=== PATIENT | male | born 1980 | race African-American/Black ===

== ENCOUNTER 2017-06-01 20:33 | Inpatient (IN) | payer SELFPAY ==
[2017-06-01] MEDS ORDERED: Ondansetron ODT 4 MG TAB PO PRN (23:17)
[2017-06-01] MEDS ORDERED: Bisacodyl 5 MG TAB PO PRN (23:17)
[2017-06-01] MEDS ORDERED: Boostrix 0.5 ML VIAL IM ONE (23:23)
--- NOTE | 2017-06-01 23:52 | HP ---
DATE OF ADMISSION: 06/01/2017 ATTENDING: Neida Toney D.O. RESIDENT: Miriam Daivs MD HISTORY OF PRESENT ILLNESS: Dr. Davis's H\T\P reviewed and case discussed. Pertinent portions of the history and physical repeated by myself. I agree with his assessment and plan with following ad dendum. Mr. Blanco is a 37-year-old -[place] male with an unremarkable past medical history who p resents to the ER with an infection in the dorsum of his left hand. 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 His left hand did show marked soft tissue swelling with minima l erythema and a 2 cm laceration on the dorsum of the left hand with some serous purulence, some tis susan is visible through the laceration is concerning for some necrosis. Hand x-ray does not show any bony involvement, pain is not significantly worsened with movement of his fingers. Orthopedic Surg terrance was called from the ER and will see him in the morning. Tonight, we will start vancomycin and Z osyn. Wound culture was performed and the patient was given pain medication for his comfort.
[2017-06-02] MEDS ORDERED: Adacel (T-DAP) 0.5 ML VIAL IM ONE (00:30)
[2017-06-02] MEDS: Sodium Chloride 0.9% 1,000 ML IV SCH ×4 (00:38→22:52)
[2017-06-02] MEDS: Piperacillin/Tazobactam 3.375 GM in Sodium Chloride 0.9% 100 ML IVPB SCH ×5 (00:40→23:48)
[2017-06-02] MEDS: Vancomycin HCl 1.5 GM in Sodium Chloride 0.9% 250 ML 300 ML IVPB SCH ×3 (02:03→15:42)
[2017-06-02 02:28] VITALS: BMI 26.3
--- NOTE | 2017-06-02 04:19 | HP-2 ---
DATE OF ADMISSION: 06/01/2017 COSIGNER: Neida Toney D.O. CODE STATUS: FULL CODE. PRIMARY CARE PHYSICIAN: Marbella palmer. Patient is from [place], unknown PCP. ATTENDING: Neida Toney D.O. PGY-I: Miriam Davis MD HISTORIAN: Patient. CHIEF COMPLAINT: Left-hand abscess. HISTORY OF PRESENT ILLNESS: A 37-year-old male with no past medical history, who presents with 2-day history of left-hand swelling, pain, and exudate/pus draining from a laceration on the dorsal aspect of the patient's left hand. 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 The patient denies fevers or chills and denies nausea, vomiting, headaches. In the ER, the patient was a transfer from [place], where he received 1 gram of Rocephin and morphine 4 mg. PAST MEDICAL HISTORY: Denies. PAST SURGICAL HISTORY: Denies. ALLERGIES: No known drug allergies. MEDICATIONS: Denies. FAMILY HISTORY: Denies. SOCIAL HISTORY: Tobacco use, half a pack per day, 10 pack years. Alcohol use, 2-3 beers per day. Drugs, denies drug use. REVIEW OF SYSTEMS: General: Negative for fevers, chills, weight, appetite, sleep changes, night sweats, fatigue. Eyes: Denies vision changes or eye pain. Respiratory: Denies cough, congestion, shortness of breath. Cardiovascular: Denies chest pain, palpitations, and edema. Gastrointestinal: Denies nausea, vomiting, diarrhea, constipation, abdominal pain, and GI bleeding. Genitourinary: Denies incontinence, dysuria. Skin: Denies rashes or lesions. Musculoskeletal: Endorses pain, tenderness, swelling, exudate, and laceration. Neuro: Denies weakness, numbness, syncope, seizure. Psychiatric: Denies anxiety or depression. PHYSICAL EXAMINATION: VITAL SIGNS: Blood pressure 120/78, pulse 82, respiratory rate 16, T-max 98.6, pulse ox 95% on room air, current weight 92 kilograms. GENERAL: Alert and oriented x3, in no acute distress. Well-developed, well- nourished, appropriately interactive. EYES: PERRLA, EOMI with erythema with conjunctival/scleral erythema. Endorses nasal mucosa within normal limits. NECK: Supple, no lymphadenopathy or thyromegaly. CARDIOVASCULAR: Regular rate and rhythm. No murmur, S3, gallops, 2+ pedal pulses. RESPIRATORY: Normal effort, no retractions. Clear to auscultation bilaterally. SKIN: Warm and dry. Left dorsal hand laceration approximately 2 inches with exudate, erythema, swelling localized around the laceration and tenderness to palpation. ABDOMEN: Soft, nontender to palpation. Positive bowel sounds. No masses or distention. EXTREMITIES: No clubbing, cyanosis, or edema, other than the left hand on the dorsal aspect with localized swelling and erythema. MUSCULOSKELETAL: Structure within normal limits other than the left-hand wound. NEUROLOGIC: No focal deficits. GCS 15. PSYCHIATRIC: Appropriate. LABORATORY DATA: CBC: White blood cell count 7.7, hemoglobin 14.1, hematocrit 40.2, platelets 289. Chemistry: Sodium 140, potassium 3.5, chloride 106, bicarb 22, BUN 7, creatinine 0.99, glucose 85. Calcium 8.6, total protein 7, albumin 3.9, total bilirubin 0.6, AST 35, ALT 21, alkaline phosphatase 53. PT 12.8, INR 1, PTT 24.3. ASSESSMENT AND PLAN: A 37-year-old male with no past medical history, admitted for left-hand abscess. 1. Left-hand abscess. Dr. Olivia has been consulted. Vancomycin and Zosyn were started and vancomycin trough placed. Wound culture was ordered. Patient was made n.p.o. at midnight. I and D is scheduled for in the morning. Morphine was provided for pain control. OT, PT, case management, and wound care have been consulted. 2. Tobacco use and abuse. Offered patch and counseled the patient on cessation. DISPOSITION AND LENGTH OF STAY: 3 days. Symptomatic medication will be provided. History and physical exam as well as management discussed with Dr. Neida Toney. DAGMAR
[2017-06-02 05:53] LABS: #Basophils 0.1 thou/uL (0.0-0.2); #Eosinphils 0.1 thou/uL (0.0-0.7); #Lymphocytes 2.4 thou/uL (1.20-3.40); #Monocytes 0.7 thou/uL (0.11-0.59); #Neutrophils 2.8 thou/uL (1.40-6.50); %Basophils 0.9 % (0.0-1.0); %Eosinophils 1.1 % (0.0-10.0); %Lymphocytes 40.1 % (21.0-51.0); %Monocytes 12.2 % (0.0-10.0); Hematocrit 41.8 % (42.0-52.0); Mean Platelet Volume 7.5 fL (7.4-10.4); Red Blood Cell (RBC) Count 4.27 mill/uL (4.70-6.10)
[2017-06-02 06:12] LABS: Anion Gap 13 mmol/L (10-20); BUN (Urea Nitrogen) 7 mg/dL (8.9-20.6); Calc. Creatinine Clearance 123 mL/min (70-130); Calcium 8.9 mg/dL (7.8-10.44); Carbon Dioxide 24 mmol/L (22-29); Chloride 108 mmol/L (98-107); Estimated GFR-MDRD Greater than 90; Magnesium 2.2 mg/dL (1.6-2.6); Phosphorus 3.6 mg/dL (2.3-4.7)
--- NOTE | 2017-06-02 06:30 | PDOC.FM ---
- Subjective Subjective: Patient doing well this AM. He is frustrated with IV this morning, as he wants it out to shower. Otherwise doing well. Moderate amount of pain in hand, but fairly well controlled with current pain medication regimen. Hand sx to see patient this AM. No significant overnight events. Will follow recommendations of hand surgeon. - Objective MAR Reviewed: Yes Vital Signs & Weight: Vital Signs (12 hours) Temp Pulse Resp BP Pulse Ox 06/02/17 04:00 98.1 F 75 16 127/78 94 L 06/02/17 02:55 95 Result Diagrams: 06/02/17 05:34 06/02/17 05:34 <Cori Mcmahan - Last Filed: 06/02/17 08:22> - Objective Vital Signs & Weight: Vital Signs (12 hours) Temp Pulse Resp BP Pulse Ox 06/02/17 11:35 98.1 F 65 16 128/73 98 06/02/17 08:13 98.4 F 62 14 134/83 97 06/02/17 04:00 98.1 F 75 16 127/78 94 L 06/02/17 02:55 95 Result Diagrams: 06/02/17 05:34 06/02/17 05:34 <Jhonny Hodge - Last Filed: 06/02/17 12:00> Phys Exam - Physical Examination Constitutional: NAD HEENT: moist MMs, sclera anicteric Neck: supple, full ROM Respiratory: no wheezing, no rales, no rhonchi, clear to auscultation bilateral Cardiovascular: RRR, no significant murmur, no rub Gastrointestinal: soft, non-tender, no distention Musculoskeletal: no edema Neurological: normal sensation, moves all 4 limbs Psychiatric: A&O x 3 Deviation from normal: Patient in bad mood this AM Skin: cap refill <2 seconds Deviation from normal: Left dorsal hand abscess with 2 cm laceration. Purulent discharge. -: Open wound. Pt. able to move fingers. No loss of sensation. 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 Mcmahan. I agree with the History, Examination, Assessment and Plan documented above with any addition or exceptions noted below. Patient admitted for IV antibiotic therapy and possible further interventions by orthopedic surgery. Await recommendations from Hand surgery this morning. Patient currently on Zosyn and Vanc, will require close monitoring of Vanc to ensure does not approach toxic levels. WBC normal and afebrile so no current evidence of systemic infection. Culture pending. Patient also positive on UDS for cocaine, will require counselling during hospitalization. Other vitals stable at this time. <Jhonny Hodge - Last Filed: 06/02/17 12:00>
[2017-06-02 08:28] LABS: Amphetamine Not Detected (NotDetected); Methadone Not Detected (NotDetected); Methamphetamine Not Detected (NotDetected)
[2017-06-02] MEDS ORDERED: Sodium Chloride 0.9% 50 ML ONE (16:57)
[2017-06-02] MEDS ORDERED: Fentanyl 100 MCG/2 ML VIAL ONE ×2 (16:58→18:42)
[2017-06-02] MEDS ORDERED: Midazolam HCl 2 mg/2 ml Vial ONE (16:58)
[2017-06-02] MEDS ORDERED: Propofol 200 MG/20 ML VIAL ONE (17:35)
[2017-06-02] MEDS ORDERED: Dexamethasone 20 MG/5 ML VIAL ONE (17:35)
[2017-06-02] MEDS ORDERED: Lidocaine 2% PF 10 ML AMP (For Epidural Use) ONE (17:35)
[2017-06-02] MEDS ORDERED: Ondansetron HCl/PF 4 MG/2 ML Vial ONE (17:35)
[2017-06-02] MEDS ORDERED: Diprivan 20 ML ONE (17:42)
[2017-06-02] MEDS ORDERED: Ondansetron HCl/PF 4 MG/2 ML Vial IVP PRN (18:16)
[2017-06-02] MEDS ORDERED: HYDROmorphone 2 MG/ML VIAL SLOW IVP PRN (18:16)
[2017-06-02] MEDS ORDERED: Promethazine HCl 25 MG/ML VIAL IM PRN ×2 (18:16→19:41)
[2017-06-02] MEDS ORDERED: Promethazine HCl 25 MG/ML VIAL SLOW IVP PRN (18:16)
[2017-06-02] MEDS ORDERED: Ketorolac Tromethamine 30 MG/ML VIAL ONE (18:33)
[2017-06-02] MEDS ORDERED: Meperidine HCl/PF 25 MG/ML VIAL SLOW IVP PRN (19:41)
[2017-06-02] MEDS ORDERED: Meperidine HCl/PF 25 MG/ML VIAL IM PRN (19:42)
[2017-06-02] MEDS ORDERED: Vancomycin HCl 1 GM in Premix Bag 1 BAG IVPB SCH (20:00)
[2017-06-02] MEDS: Ketorolac Tromethamine 30 MG/ML VIAL IVP SCH (21:49)
[2017-06-03] MEDS: Vancomycin HCl 1 GM in Premix Bag 1 BAG IVPB SCH ×2 (03:38→13:59)
[2017-06-03] MEDS: Ketorolac Tromethamine 30 MG/ML VIAL IVP SCH ×3 (05:29→21:39)
[2017-06-03] MEDS: Piperacillin/Tazobactam 3.375 GM in Sodium Chloride 0.9% 100 ML IVPB SCH ×3 (05:29→17:19)
--- NOTE | 2017-06-03 05:48 | PDOC.FM ---
- Subjective Subjective: No significant overnight events. Patient taken to OR yesterday afternoon by Dr. Olivia. Gross abscess of left intraarticular MCPT noted. Infectious disease consulted. Patient doing well this AM. VSS. Afebrile. Patient reported that he wanted to leave this afternoon, because he has to pick his child up from school. It was advised that he call a friend or family member to assist with taking care of child while he is in hospital. - Objective MAR Reviewed: Yes Vital Signs & Weight: Vital Signs (12 hours) Temp Pulse Resp BP Pulse Ox 06/02/17 21:12 98 F 83 18 112/76 98 06/02/17 20:35 97.7 F 54 L 18 98 06/02/17 19:30 97.7 F 54 L 18 157/105 H 97 Weight Admit Weight 92.986 kg Weight 92.986 kg Result Diagrams: 06/03/17 05:26 06/03/17 05:26 <Cori Mcmahan - Last Filed: 06/03/17 08:12> - Objective Vital Signs & Weight: Vital Signs (12 hours) Temp Pulse Resp BP Pulse Ox 06/03/17 07:00 98 F 56 L 14 111/71 97 Weight Admit Weight 92.986 kg Weight 92.986 kg Result Diagrams: 06/03/17 05:26 06/03/17 05:26 <Jhonny Hodge - Last Filed: 06/03/17 11:24> Phys Exam - Physical Examination Constitutional: NAD HEENT: moist MMs, sclera anicteric Conjunctival erythema Neck: supple, full ROM Respiratory: no wheezing, no rales, no rhonchi, clear to auscultation bilateral Cardiovascular: RRR, no significant murmur, no rub Gastrointestinal: soft, non-tender, no distention, positive bowel sounds Musculoskeletal: no edema, pulses present Neurological: moves all 4 limbs Psychiatric: A&O x 3 Skin: cap refill <2 seconds Deviation from normal: Left hand bandaged. Bandage clean, dry and intact. -: Pinky and thumb nails excessively long compared to rest of nails. 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 Olivia: IV vancomycin and ID consults for intraarticular MCPT abscess older than one week -Dr. Quintero (ID) consulted per Dr. 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 Mcmahan. I agree with the History, Examination, Assessment and Plan documented above with any addition or exceptions noted below. Patient with successful drainage by Dr. Olivia yesterday. Patient reports no current pain. Cultures pending, though growing G+ cocci in pairs. Continue current abx regimen and await further recs from ID. No evidence of systemic infection at this time. Patient is likely to need prolonged wound care and a longer course of abx than what he has currently received, but patient appears determined to leave hospital today. Advised him that this is not in his best interest and would be better to wait until the specialists have cleared him. He understands but reports he will be leaving hospital today. Unless cleared this afternoon by ID and Ortho, patient will have to sign out AMA if he chooses to leave the hospital. <Jhonny Hodge - Last Filed: 06/03/17 11:24>
[2017-06-03 06:15] LABS: #Basophils 0.1 thou/uL (0.0-0.2); #Lymphocytes 0.9 thou/uL (1.20-3.40); #Monocytes 0.5 thou/uL (0.11-0.59); #Neutrophils 9.2 thou/uL (1.40-6.50); %Basophils 0.6 % (0.0-1.0); %Eosinophils 0.3 % (0.0-10.0); %Lymphocytes 8.1 % (21.0-51.0); Hematocrit 41.4 % (42.0-52.0); Mean Platelet Volume 8.3 fL (7.4-10.4); Red Blood Cell (RBC) Count 4.23 mill/uL (4.70-6.10); White Blood Cell (WBC) Count 10.7 thou/uL (4.8-10.8)
[2017-06-03 06:35] LABS: Anion Gap 14 mmol/L (10-20); BUN (Urea Nitrogen) 11 mg/dL (8.9-20.6); Calc. Creatinine Clearance 119 mL/min (70-130); Calcium 8.5 mg/dL (7.8-10.44); Carbon Dioxide 20 mmol/L (22-29); Chloride 106 mmol/L (98-107); Estimated GFR-MDRD 89
[2017-06-03] MEDS: Sodium Chloride 0.9% 1,000 ML IV SCH ×3 (08:43→22:39)
--- NOTE | 2017-06-03 23:53 | CON ---
DATE OF CONSULTATION: 06/03/2017 REASON FOR CONSULTATION: Left hand infection. 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 The patient was admitted and had a surgical debridement by Dr. Ayana rodriguez. I have not yet had a chance of reviewing the operative report. Cultures have been taken and th e results are discussed below. Otherwise, he denies headaches, visual symptoms, sore throat, odynop hagia, dysphagia. No cough or sputum production. No chest pain. No abdominal pain. No diarrhea. No genitourinary symptoms. No neurological problems. PAST MEDICAL HISTORY: Negative. PAST SURGICAL HISTORY: Negative. ALLERGIES: None. MEDICATIONS: Currently receiving Zosyn, vancomycin SOCIAL HISTORY: He has five children. He smokes daily. Drinks occasionally. Lives with his girlf jaime. PHYSICAL EXAMINATION: VITAL SIGNS: Have been normal, temperature normal. Slight elevation in systolic blood pressure. SKIN: Examination shows the elliptical laceration over the third left MCP skin site. Current findi ngs are not updated because of a bulky dressing which was not removed. No lymphadenopathy. HEENT: Ocular movements are conjugate. Sclerae white. Pupils are equal. Oral cavity moist. The patient has quite a bit of work in his teeth. NECK: Supple, no jugular vein distention. LUNGS: With symmetric clear breath sounds. HEART: S1, S2, regular rate. No S3 or S4. ABDOMEN: Soft, nondistended, nontender. No ascites. No bladder distention. EXTREMITIES: No joint inflammatory activity outside the area of involvement. NEUROLOGIC EXAMINATION: Nonfocal. LABORATORY DATA: White cell count 6 and 10.7, hemoglobin 14, platelets 291,000, 86% neutrophils, cr eatinine 1.09 and 1.13, sodium 136. Toxicology with opiates and cocaine metabolites. Microbiology with Staph aureus, pending susceptibilities and a gram-negative aliya yet to be fully identified, susc eptibility tested. The Staph aureus quantitation was many. Quantitation for the gram negative aliya was rare. Anaerobic cultures are pending. X-ray did not show any osteolysis. ASSESSMENT: Laceration, left hand third MCP skin site with cellulitis and likely deeper involvement , possible tenosynovitis. DISCUSSION: Septic arthritis/osteomyelitis. We will review operative report and wait on susceptibi lity profile of the organism to define IV versus oral treatment and which regimen to use. Check HIV serology, RPR and hepatitis C.
[2017-06-04] MEDS: Piperacillin/Tazobactam 3.375 GM in Sodium Chloride 0.9% 100 ML IVPB SCH ×2 (00:41→06:27)
[2017-06-04] MEDS: Vancomycin HCl 1 GM in Premix Bag 1 BAG IVPB SCH (03:52)
[2017-06-04 05:04] LABS: #Basophils 0.1 thou/uL (0.0-0.2); #Eosinphils 0.1 thou/uL (0.0-0.7); #Lymphocytes 2.9 thou/uL (1.20-3.40); #Monocytes 0.6 thou/uL (0.11-0.59); #Neutrophils 5.1 thou/uL (1.40-6.50); %Basophils 0.7 % (0.0-1.0); %Eosinophils 0.9 % (0.0-10.0); %Lymphocytes 32.8 % (21.0-51.0); Hematocrit 36.9 % (42.0-52.0); Red Blood Cell (RBC) Count 3.74 mill/uL (4.70-6.10); White Blood Cell (WBC) Count 8.7 thou/uL (4.8-10.8)
[2017-06-04 05:29] LABS: Anion Gap 11 mmol/L (10-20); BUN (Urea Nitrogen) 8 mg/dL (8.9-20.6); Calc. Creatinine Clearance 121 mL/min (70-130); Calcium 8.2 mg/dL (7.8-10.44); Carbon Dioxide 22 mmol/L (22-29); Chloride 109 mmol/L (98-107); Estimated GFR-MDRD Greater than 90
[2017-06-04] MEDS: Ketorolac Tromethamine 30 MG/ML VIAL IVP SCH (06:27)
[2017-06-04] MEDS ORDERED: Potassium Chloride 20 MEQ TAB PO SCH (06:42)
--- NOTE | 2017-06-04 08:28 | PDOC.FM ---
- Subjective Subjective: Patient doing well this AM. No significant overnight events. Dr. Olivia came by to talk with patient yesterday regarding importance of staying to have infection treated appropriately. Initially, patient wanted to leave AMA. Patient decided it was in his best interest to stay after the discussion, and after seeing the open wound for himself. Dr. Quintero has been consulted. Awaiting sensitivities to determine antibiotic therapy as outpatient. - Objective MAR Reviewed: Yes Vital Signs & Weight: Vital Signs (12 hours) Temp Pulse Resp BP Pulse Ox 06/04/17 07:00 97.9 F 57 L 16 06/04/17 05:04 97.9 F 57 L 16 112/71 96 06/04/17 01:01 98 06/04/17 00:24 97.9 F 58 L 16 132/82 99 06/03/17 20:41 98.5 F 63 18 136/78 96 06/03/17 20:39 98.5 F 63 18 99 Weight Admit Weight 92.986 kg Weight 92.986 kg I&O: 06/03/17 06/04/17 06/05/17 06:59 06:59 06:59 Intake Total 3216 Balance 3216 Result Diagrams: 06/04/17 04:48 06/04/17 04:48 <Cori Mcmahan - Last Filed: 06/04/17 08:44> - Objective Vital Signs & Weight: Vital Signs (12 hours) Temp Pulse Resp BP BP Pulse Ox 06/04/17 11:37 97.4 F L 64 20 164/90 H 100 06/04/17 07:45 97.7 F 57 L 18 114/72 98 06/04/17 07:00 97.7 F 57 L 18 06/04/17 05:04 97.9 F 57 L 16 112/71 96 06/04/17 01:01 98 06/04/17 00:24 97.9 F 58 L 16 132/82 99 Weight Admit Weight 92.986 kg Weight 92.986 kg I&O: 06/03/17 06/04/17 06/05/17 06:59 06:59 06:59 Intake Total 3216 Balance 3216 Result Diagrams: 06/04/17 04:48 06/04/17 04:48 <Jhonyn Hodge - Last Filed: 06/04/17 12:10> Phys Exam - Physical Examination Constitutional: NAD HEENT: moist MMs, sclera anicteric Conjunctival erythema Neck: full ROM Respiratory: no wheezing, no rales, no rhonchi, clear to auscultation bilateral Cardiovascular: RRR, no significant murmur Gastrointestinal: soft, non-tender, no distention, positive bowel sounds Musculoskeletal: no edema, pulses present Neurological: moves all 4 limbs Psychiatric: A&O x 3 Skin: cap refill <2 seconds Deviation from normal: Left hand bandaged. Bandage clean, dry and intact. <Cori Mcmahan - Last Filed: 06/04/17 08:44> Dx/Plan (1) Abscess of dorsum of left hand Code(s): L02.512 - CUTANEOUS ABSCESS OF LEFT HAND Status: Acute Plan: -Hand sx consulted; appreciate recs -Patient taken back to OR on 06/02 -Vanc and zosyn day #4 -Afebrile, VSS -Pain controlled -Wound cultures grew staph aureus and pseudomonas -Recs from Dr. Olivia: IV vancomycin and ID consults for intraarticular MCPT abscess older than one week -Dr. Quintero (ID) consulted per Dr. Olivia; appreciate recs -Dr. 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 Mcmahan. I agree with the History, Examination, Assessment and Plan documented above with any addition or exceptions noted below. Patient doing well today. We are awaiting ID recs on abx as sensitivities have resulted. It appears as Cipro may be a good choice but will await ID recs. Patient likely stable for d/c once abx determined and Hand Surg has agreed with d/c. <Jhonny Hodge R - Last Filed: 06/04/17 12:10>
[2017-06-04] MEDS: Sodium Chloride 0.9% 1,000 ML IV SCH (11:43)
[2017-06-04 11:57] VITALS: BP 164/90; TEMP 97.4
--- NOTE | 2017-06-05 01:08 | DIS-2 ---
DATE OF ADMISSION: 06/01/2017. DATE OF DISCHARGE: 06/04/2017. RESIDENT: Dr. Cori Mcmahan. ADMITTING ATTENDING: Dr. Neida Toney. DISCHARGE ATTENDING: Dr. Jhonyn Hodge. CONSULTATIONS: 1. Hand Trauma, Dr. Kevin Olivia. 2. Infectious Disease, Dr. Abhi Quintero. 3. Wound Care. PROCEDURES: Incision and drainage of wound; left hand abscess. PRIMARY DIAGNOSES: 1. Left dorsal hand abscess. 2. Intra-articular metacarpophalangeal tendon abscess older than 1 week. SECONDARY DIAGNOSIS: Tobacco abuse. DISCHARGE MEDICATIONS: 1. Rifampin 300 mg oral twice daily. 2. Ciprofloxacin 500 mg oral twice daily. DISCONTINUED MEDICATIONS: None. HISTORY OF PRESENT ILLNESS/HOSPITAL COURSE: Mr. Blanco is a 37-year-old -Filipino male with unremarkable past medical history, who presented to the emergency room with an infection over the dorsum of his left hand. 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 His left hand did show marked soft tissue swelling with minimal erythema and a 2 cm laceration on the dorsum of the left hand with some serous purulence. Some tissue is visible through the laceration, which may be concerning for necrosis. Hand x-ray does not show any bony involvement and pain is not significantly worsened with movement of his fingers. Orthopedic Surgery was called from the ER and evaluated the patient the next morning. The patient was started on vancomycin and Zosyn pending wound cultures. The patient remained stable throughout the course of his hospital stay. He did have an incision and drainage performed of the left hand abscess by Dr. Keivn Olivia from Hand Trauma. Dr. Olivia noted that the metacarpophalangeal tendon was also infected. He opted to consult Infectious Disease for options regarding antibiotics. Wound cultures were positive for Staph aureus and Pseudomonas aeruginosa, which were susceptible to multiple antibiotics. White blood cell count was performed. On admission, white blood cell count was 6.0, hemoglobin 14.5, hematocrit 41.8, platelet count 285. BMP was also performed. Sodium 141, potassium 3.9, chloride 108, bicarb 24, BUN 7, creatinine 1.09, glucose 82, calcium 8.9, phosphorus was 3.6. Magnesium was noted to be 2.2. Of note, the patient was positive for opiates and cocaine on toxicology screen. He was negative for syphilis, hepatitis C or HIV. The patient was eager to go home. He threatened to leave AMA on several different occasions. The primary team was called regarding the patient's desire to leave AMA. As we were waiting on the plan from Dr. Quintero, we could not discharge the patient at that time. It was advised that the nurse get in touch with Dr. Quintero to verify medication regimen. I spoke with the nurse after the patient was already discharged. She told me that she contacted Dr. Quintero and he provided the recommended medication regimen. He gave her a written script and the nurse took it upon herself to discharge the patient without notifying the primary team. I was told that the patient did not leave AMA and that all scripts were given as appropriate. The patient was given instructions for how to change wound dressing. He is to follow up with Dr. Quintero in 2-3 weeks. It was advised that he call for an appointment and to be sure that he keeps his dressing clean and follows the recommendations from Dr. Quintero. Per the discharge summary put through by the nurse, it looks like patient is to follow with Dr. Olivia tomorrow afternoon in his clinic. He is supposed to call for an appointment. Again, the primary team did not put through these discharge orders and was not notified until after the patient was already discharged and had left the hospital, thus all of the discharge information being reported is information provided by nurse. DISPOSITION: Stable. DISCHARGE INSTRUCTIONS: 1. Location: Home. 2. Diet: Regular diet. 3. Activity: No restrictions. 4. Followup: The patient is to follow up with Dr. Quintero in 2-3 weeks. The patient is to follow up with Dr. Olivia tomorrow at clinic. Instructions were provided by the nurse. DAGMAR
== END 2017-06-04 12:49 | disposition home or self-care (01) | DRG 988 ==
LOC: ERS 20:33 → SURG B 22:41
PROVIDERS: ADMIT Family Medicine; ATTEND Family Medicine
PROC: 0L980ZZ Drainage of Left Hand Tendon, Open Approach (ICD-10-PCS; principal; 2017-06-02)
DX: L02.512 Cutaneous abscess of left hand (principal); L03.114 Cellulitis of left upper limb; B95.61 Methicillin susceptible Staphylococcus aureus infection as the cause of diseases classified elsewhere; B96.5 Pseudomonas (aeruginosa) (mallei) (pseudomallei) as the cause of diseases classified elsewhere; M65.042 Abscess of tendon sheath, left hand; F17.210 Nicotine dependence, cigarettes, uncomplicated; Z23 Encounter for immunization; F10.10 Alcohol abuse, uncomplicated; S61.412A Laceration without foreign body of left hand, initial encounter; W45.8XXA Other foreign body or object entering through skin, initial encounter
CPT/HCPCS: 36415; 80048; 80306; 83735; 84100; 85025; 86780; 86803; 87070; 87076; 87077; 87102; 87116; 87186; 87205; 87206; 87389; 90715; 99285; A4216; J1100; J1885; J2001; J2250; J2270; J2405; J2543; J2704; J3010; J3370; J3490; J7050

== ENCOUNTER 2017-06-16 11:35 | Day surgery (SDC) | payer OTHER, SELFPAY ==
[2017-06-13 12:32] VITALS: BMI 26.9
[2017-06-16] MEDS ORDERED: Vancomycin HCl 1.5 GM, Admixture Fee 1 EACH in Sodium Chloride 0.9% 250 ML 300 ML IVPB SCH (12:30)
== END 2017-06-16 13:56 | disposition home or self-care (01) ==
LOC: SDC 11:35
PROVIDERS: ATTEND Orthopaedic Surgery Hand Surgery
DX: S61.209A Unspecified open wound of unspecified finger without damage to nail, initial encounter (principal); F17.200 Nicotine dependence, unspecified, uncomplicated; F14.90 Cocaine use, unspecified, uncomplicated; Z53.29 Procedure and treatment not carried out because of patient's decision for other reasons; Z79.2 Long term (current) use of antibiotics; Z72.89 Other problems related to lifestyle; Z98.890 Other specified postprocedural states
CPT/HCPCS: J3370; J7050

== ENCOUNTER 2017-06-30 13:09 | Day surgery (SDC) | payer SELFPAY ==
[2017-06-27 10:10] VITALS: BMI 26.9
[2017-06-30] MEDS ORDERED: Vancomycin HCl 1.5 GM, Admixture Fee 1 EACH in Sodium Chloride 0.9% 250 ML 300 ML IVPB SCH (14:00)
== END 2017-06-30 14:50 | disposition home or self-care (01) ==
LOC: SDC 13:09
PROVIDERS: ATTEND Orthopaedic Surgery Hand Surgery
DX: S61.209A Unspecified open wound of unspecified finger without damage to nail, initial encounter (principal); Z53.8 Procedure and treatment not carried out for other reasons; F17.210 Nicotine dependence, cigarettes, uncomplicated; F14.90 Cocaine use, unspecified, uncomplicated; Z79.2 Long term (current) use of antibiotics; Z72.89 Other problems related to lifestyle
CPT/HCPCS: J3370; J7050

== ENCOUNTER 2017-07-09 11:08 | Day surgery (SDC) | payer SELFPAY ==
[2017-07-08 13:26] VITALS: BMI 26.9
[2017-07-09] MEDS ORDERED: Vancomycin HCl 1.5 GM, Admixture Fee 1 EACH in Sodium Chloride 0.9% 250 ML 300 ML IVPB SCH (13:15)
[2017-07-09 13:43] LABS: #Basophils 0.1 thou/uL (0.0-0.2); #Eosinphils 0.1 thou/uL (0.0-0.7); #Lymphocytes 2.4 thou/uL (1.20-3.40); #Monocytes 0.7 thou/uL (0.11-0.59); #Neutrophils 3.1 thou/uL (1.40-6.50); %Basophils 1.7 % (0.0-1.0); %Monocytes 10.8 % (0.0-10.0); Mean Platelet Volume 7.7 fL (7.4-10.4); Red Blood Cell (RBC) Count 4.59 mill/uL (4.70-6.10); White Blood Cell (WBC) Count 6.3 thou/uL (4.8-10.8)
[2017-07-09 14:04] LABS: Anion Gap 15 mmol/L (10-20); BUN (Urea Nitrogen) 14 mg/dL (8.9-20.6); Calc. Creatinine Clearance 120 mL/min (70-130); Calcium 9.4 mg/dL (7.8-10.44); Carbon Dioxide 22 mmol/L (22-29); Chloride 105 mmol/L (98-107); Estimated GFR-MDRD 87
[2017-07-09] MEDS ORDERED: Thrombin 5000 UNITS/5 ML VIAL ONE (14:19)
[2017-07-09] MEDS ORDERED: Bacitracin Zinc Ointment 30 gm TUBE ONE (14:19)
[2017-07-09] MEDS ORDERED: Sodium Chloride 0.9% 10 ML ONE (14:21)
[2017-07-09] MEDS ORDERED: Betamet Acet/Betamet Na Ph 30 MG/5 ML VIAL ONE (14:43)
[2017-07-09] MEDS ORDERED: Fentanyl 100 MCG/2 ML VIAL ONE (15:15)
[2017-07-09] MEDS ORDERED: Dexamethasone 20 MG/5 ML VIAL ONE (15:20)
[2017-07-09] MEDS ORDERED: Ondansetron HCl/PF 4 MG/2 ML Vial ONE (15:20)
[2017-07-09] MEDS ORDERED: Ketorolac Tromethamine 30 MG/ML VIAL ONE ×2 (15:20→17:03)
[2017-07-09] MEDS ORDERED: PHENYLEPHRINE-NS 100 MCG/ML 10 ML SYRINGE ONE (15:20)
[2017-07-09] MEDS ORDERED: Lidocaine 2% PF 10 ML AMP (For Epidural Use) ONE (15:20)
[2017-07-09] MEDS ORDERED: Bupivacaine PF 0.5% 30 ML VIAL ONE (15:26)
[2017-07-09] MEDS ORDERED: Lidocaine 2% w/Epinephrine 1:200K 20 ML VIAL ONE (15:26)
[2017-07-09] MEDS ORDERED: HYDROcodone/Acetaminophen 5/325 mg Tablet ONE (17:33)
--- NOTE | 2017-07-10 06:22 | OP ---
DATE OF SURGERY: 07/09/2017 PREOPERATIVE DIAGNOSES: 1. Open wound, 5 cm over the metacarpophalangeal joint, left long finger/middle finger. 2. Tendon laceration over the joint. 3. Open metacarpophalangeal joint. FINDINGS: 1. Open wound, 5 cm over the metacarpophalangeal joint, left long finger/middle finger. 2. Tendon laceration over the joint. 3. Open metacarpophalangeal joint. 4. A 5 cm wound, gross granulation tissue of the wound, and a 3.5-4 mm gap in extensor tendon with a central hole over the joint. PROCEDURES PERFORMED: 1. Joint debridement. 2. Debridement of wound intermediate depth. 3. Repair of retinaculum. 4. Excessive tendon repair. 5. Flap closure for wound. TOURNIQUET TIME: 60 minutes. SURGEON: Kevin Olivia M.D. VENDING SUPERVISOR: Sixto Wilson, certified flight instructor. FINDINGS: Gross infection and the gap as described above. DESCRIPTION OF PROCEDURE: After successful general endotracheal anesthesia, the limb was prepped an d draped. A time out was done appropriately and identified the sites, which matched the consent. W e then exsanguinated the limb, tourniquet 250 mmHg pressure. We then were able to debride the wound edges, which included the use of [place] blade, 11 blade knife, tenotomy scissors and a curet. The depth was first just to subcutaneous tissue of wound, then the extensor tendon scar, and then the sc ar granulation layer in the center portion of the entire wound. We identified the retinaculum. We then debrided the joint using the same instruments and excisional technique. That depth was down to include the joint. Then we irrigated the joint with 700 mL of normal saline with antibiotics insid e. We completely debrided the scar and granulation around the tendon until we had excellent tendon edge s for repair and the same was seen with the retinaculum. We then repaired the tendon using a figure -of-eight x4 loops with 4-0 Prolene and then buried knot and we then repaired the retinaculum with a combination of 4-0 and 5-0 suture in running technique. We then made a 15-mm long relaxing incision to create a flap to rotate the skin to cover the defect because the incision was almost 5 cm long. This also had been at one point almost 1.5 cm wide. The re was no further granulation tissue left. The wound edges were completely debrided with the techni ques listed above. We released the tourniquet and the wound edges were bleeding circumferentially o n both sides. We then rotated the flap, using running 4-0 Monocryl buried intradermal suture for de ep layer closure and the skin reapproximated with 4-0 nylon interrupted mattress pattern. A total o f 10 mL Marcaine block was given in a elli-incisional wound technique and the patient then left the operating room with a splint, the MP joint of the operative long finger hyperextended compared to th e other sites, and excellent wound and digit color. A splint was applied, short arm.
== END 2017-07-09 17:55 | disposition home or self-care (01) ==
LOC: SDC 11:08
PROVIDERS: ATTEND Orthopaedic Surgery Hand Surgery
PROC: 0LQ80ZZ Repair Left Hand Tendon, Open Approach (ICD-10-PCS; principal; 2017-07-09)
DX: S61.203A Unspecified open wound of left middle finger without damage to nail, initial encounter (principal); F17.210 Nicotine dependence, cigarettes, uncomplicated
CPT/HCPCS: 36415; 80048; 85025; 96372; A4216; J0702; J1100; J1885; J2001; J2405; J3010; J3370; J3490; J7050; S0020

== ENCOUNTER 2020-11-06 14:49 | Outpatient (CLI) | payer BC ==
--- NOTE | 2020-11-06 15:15 | MMO ---
Bilateral MAMMO Bilat Diag [facility]. CLINICAL HISTORY: Patient is 40 years old and is seen for diagnostic exam and palpable abnormality in the left breast. The patient has no family history of breast cancer. The patient has no personal history of cancer. VIEWS: The views performed were: bilateral craniocaudal with tomosynthesis; bilateral mediolateral oblique with tomosynthesis; and bilateral mediolateral with tomosynthesis. FILMS COMPARED: The present examination has been compared to a prior imaging study performed at [facility] on 11/06/2020. This study has been interpreted with the assistance of computer-aided detection. MAMMOGRAM FINDINGS: There are scattered fibroglandular densities. 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 There are no suspicious masses, suspicious calcifications, or new areas of architectural distortion. IMPRESSION: THERE IS NO MAMMOGRAPHIC EVIDENCE OF MALIGNANCY. THE RESULTS OF THIS EXAM WERE SENT TO THE PATIENT. ACR BI-RADS Category 2 - Benign finding MAMMOGRAPHY NOTE: 1. A negative mammogram report should not delay a biopsy if a dominant of clinically suspicious mass is present. 2. Approximately 10% to 15% of breast cancers are not detected by mammography. 3. Adenosis and dense breasts may obscure an underlying neoplasm. Reported by: JOHNNA BROOKS MD Electonically Signed: [id number]
== END 2020-11-06 14:50 | disposition home or self-care (01) ==
LOC: BICMAMMO 14:49
PROVIDERS: ATTEND Family Medicine
DX: N63.20 Unspecified lump in the left breast, unspecified quadrant (principal)
CPT/HCPCS: 77066; G0279